=== PATIENT | male | born 1980 | race Caucasian/White ===

== ENCOUNTER 2017-08-16 06:37 | Emergency (ER) | payer OTHER ==
[~2017-08-16] VITALS: Ht 167.6 cm; Wt 138.3 kg
[~2017-08-16 06:37] MED LIST: ACYCLOVIR400 MG PO; BACTRIM DS TABL1 TAB PO; KEFLEX PO; KETOPROFEN PO; ORUDIS75 M1 PO; PREDNISONE10 MG/DOSE PO; VICODIN 5/500 T1 TAB PO
== END 2017-08-16 07:48 | disposition home or self-care (01) ==
LOC: CED 06:37
DX: H66.91 Otitis media, unspecified, right ear (principal); G51.0 Bell's palsy; Z79.899 Other long term (current) drug therapy; Z88.1 Allergy status to other antibiotic agents
CPT/HCPCS: 99282